=== PATIENT | female | born 1960 | race Caucasian/White ===

== ENCOUNTER 2019-09-15 01:21 | Emergency (ER) | payer OTHER ==
[~2019-09-15] VITALS: Ht 152.4 cm; Wt 65.5 kg
[2019-09-15 01:36] VITALS: Ht 152.4 cm; Wt 65.5 kg
[2019-09-15 05:40] VITALS: BP 175/95
== END 2019-09-15 05:40 | disposition home or self-care (01) ==
LOC: ED 01:21
DX: U07.1 COVID-19 (principal); J40 Bronchitis, not specified as acute or chronic; I10 Essential (primary) hypertension; E11.9 Type 2 diabetes mellitus without complications; Z88.5 Allergy status to narcotic agent
CPT/HCPCS: Q0092; U0003-CS